=== PATIENT | male | born 1985 | race Caucasian/White ===

== ENCOUNTER 2018-11-19 23:09 | Emergency (ER) | payer MEDICAID ==
[2018-11-20] MEDS: LIDOCAINE 1% (MDV) 20 ML INJ SC (00:19)
== END 2018-11-20 01:42 | disposition home or self-care (01) ==
LOC: E/R 23:09 → FTE 11-20 01:42
DX: L72.3 Sebaceous cyst (principal); R40.2412 Glasgow coma scale score 13-15, at arrival to emergency department
CPT/HCPCS: 69000; 99282-25

== ENCOUNTER 2019-03-04 22:37 | Observation (INO) | payer SELFPAY, MEDICAID ==
[2019-03-04] MEDS: SOD CHLORIDE 0.9% 1,000 ML IV (23:37)
[2019-03-04 23:43] LABS: ADD MAN DIFF? NO
[2019-03-04 23:46] LABS: WHITE BLOOD COUNT 10.7 10^3/ul (4.8-10.8)
[2019-03-04 23:46] LABS: BASOPHIL # 0.1 10^3/ul (0.0-0.1); BASOPHILS % 0.7 % (0.0-2.0); EOSINOPHILS # 0.1 10^3/ul (0.0-0.5); HEMATOCRIT 47.8 % (42.0-52.0); HEMOGLOBIN 16.1 g/dl (14.0-18.0); MEAN CORPUSCULAR HEMOGLOBIN 27.1 pg (29.0-33.0); MEAN CORPUSCULAR HGB CONC 33.7 g/dl (32.0-37.0); MEAN CORPUSCULAR VOLUME 80.5 fl (82.0-101.0); MEAN PLATELET VOLUME 9.6 fl (7.4-10.4); MONOCYTE # 0.7 10^3/ul (0.3-0.9); MONOCYTES % 6.9 % (0.0-11.0); NEUTROPHIL # 6.8 10^3/ul (1.6-7.5); NEUTROPHILS % 62.9 % (39.0-77.0); PLATELET COUNT 320 10^3/UL (140-415); RED BLOOD COUNT 5.94 10^6/ul (4.70-6.10); RED CELL DISTRIBUTION WIDTH 11.9 % (11.5-14.5)
[2019-03-05 00:02] LABS: ALANINE AMINOTRANSFERASE 52 IU/L (13-69); ALBUMIN 5.1 g/dl (3.3-4.9); ALBUMIN/GLOBULIN RATIO 1.45; ALKALINE PHOSPHATASE 104 IU/L (42-121); ANION GAP 12 (5-13); ASPARTATE AMINO TRANSFERASE 32 IU/L (15-46); BLOOD UREA NITROGEN 17 mg/dl (7-20); CALCIUM 9.9 mg/dl (8.4-10.2); CARBON DIOXIDE 30 mmol/L (21-31); CHLORIDE 102 mmol/L (97-110); CREATININE 0.88 mg/dl (0.61-1.24); Estimated GFR > 60 mL/min (>60); GLUCOSE 84 mg/dl (70-220); POTASSIUM 4.2 mmol/L (3.5-5.1); SODIUM 144 mmol/L (135-144); TOTAL PROTEIN 8.6 g/dl (6.1-8.1)
[2019-03-05 00:14] LABS: TROPONIN-I < 0.012 ng/ml (0.000-0.120)
[2019-03-05 00:20] LABS: FREE THYROXINE INDEX (Calc) 3.14 ug/ml (0.65-3.89); T3 UPTAKE 32.7 % (23.5-40.5); T4 (THYROXINE) 9.6 ug/dl (5.5-11.0)
[2019-03-05 01:22] LABS: BILIRUBIN,INDIRECT 0.7 mg/dl (0-1.1); BILIRUBIN,TOTAL 0.7 mg/dl (0.2-1.3)
[2019-03-05 01:32] LABS: B-TYPE NATRIURETIC PEPTIDE 20 PG/ML (0-125)
[2019-03-05] MEDS: ACETAMINOPHEN 325 MG TAB PO ×2 (03:19→21:06)
[2019-03-05] MEDS ORDERED: NACL 0.9% 3 ML SYG IV (05:30)
[2019-03-05] MEDS ORDERED: ONDANSETRON 4 MG INJ IV (05:30)
[2019-03-05] MEDS ORDERED: NITROGLYCERIN (SL) 0.4 MG TAB SL (05:30)
[2019-03-05 05:44] LABS: ADD MAN DIFF? NO
[2019-03-05 05:47] LABS: BASOPHIL # 0.1 10^3/ul (0.0-0.1); EOSINOPHILS # 0.2 10^3/ul (0.0-0.5); HEMOGLOBIN 14.4 g/dl (14.0-18.0); LYMPHOCYTES % 36.9 % (15.0-51.0); MEAN CORPUSCULAR HGB CONC 33.5 g/dl (32.0-37.0); MEAN CORPUSCULAR VOLUME 80.7 fl (82.0-101.0); MEAN PLATELET VOLUME 9.5 fl (7.4-10.4); MONOCYTE # 0.9 10^3/ul (0.3-0.9); MONOCYTES % 10.4 % (0.0-11.0); NEUTROPHIL # 4.1 10^3/ul (1.6-7.5); NEUTROPHILS % 49.5 % (39.0-77.0); PLATELET COUNT 273 10^3/UL (140-415); RED BLOOD COUNT 5.33 10^6/ul (4.70-6.10); RED CELL DISTRIBUTION WIDTH 12.3 % (11.5-14.5)
[2019-03-05 05:47] LABS: WHITE BLOOD COUNT 8.2 10^3/ul (4.8-10.8)
[2019-03-05 06:11] LABS: ALANINE AMINOTRANSFERASE 40 IU/L (13-69); ALBUMIN 4.1 g/dl (3.3-4.9); ALBUMIN/GLOBULIN RATIO 1.57; ALKALINE PHOSPHATASE 74 IU/L (42-121); ANION GAP 7 (5-13); ASPARTATE AMINO TRANSFERASE 21 IU/L (15-46); BILIRUBIN,INDIRECT 0.9 mg/dl (0-1.1); BILIRUBIN,TOTAL 0.9 mg/dl (0.2-1.3); BLOOD UREA NITROGEN 13 mg/dl (7-20); CALCIUM 9.2 mg/dl (8.4-10.2); CARBON DIOXIDE 33 mmol/L (21-31); CHLORIDE 104 mmol/L (97-110); CHOL/HDL RATIO 4.1 RATIO; CHOLESTEROL 165 mg/dl (100-200); CREATININE 0.82 mg/dl (0.61-1.24); Estimated GFR > 60 mL/min (>60); GLUCOSE 81 mg/dl (70-220); HDL CHOLESTEROL 40 mg/dl (28-63); LDL CHOLESTEROL,CALCULATED 96 mg/dl; MAGNESIUM 2.2 mg/dl (1.7-2.5); POTASSIUM 3.9 mmol/L (3.5-5.1); SODIUM 144 mmol/L (135-144); TOTAL PROTEIN 6.7 g/dl (6.1-8.1); TRIGLYCERIDES 146 mg/dl (0-149)
[2019-03-05 06:14] LABS: CREATINE KINASE 63 IU/L (23-200)
[2019-03-05 06:23] LABS: CK INDEX 0.5; CK-MB 0.32 ng/ml (0.0-2.4); TROPONIN-I < 0.012 ng/ml (0.000-0.120)
[2019-03-05 07:17] LABS: FOLATE 6.2 ng/ml (2.8-20.0)
[2019-03-05] MEDS: ENOXAPARIN 40 MG/0.4 ML SYG SC ×2 (09:00→10:06)
[2019-03-05] MEDS: ASPIRIN 81 MG TAB PO (10:06)
[2019-03-05 11:33] LABS: CREATINE KINASE 68 IU/L (23-200)
[2019-03-05 11:44] LABS: CK INDEX 0.3; CK-MB 0.23 ng/ml (0.0-2.4); TROPONIN-I < 0.012 ng/ml (0.000-0.120)
[2019-03-05] MEDS: SUMATRIPTAN 6 MG/0.5 ML INJ SC (16:03)
[2019-03-05] MEDS: ATORVASTATIN 20 MG TAB PO (21:06)
[2019-03-05] MEDS: LORAZEPAM 1 MG TAB PO (22:51)
[2019-03-05] MEDS: KETOROLAC 30 MG INJ IV (23:40)
[2019-03-06] MEDS ORDERED: KETOROLAC 30 MG INJ IV (06:00)
[2019-03-06 06:41] LABS: ADD MAN DIFF? NO
[2019-03-06 06:49] LABS: WHITE BLOOD COUNT 7.8 10^3/ul (4.8-10.8)
[2019-03-06 06:49] LABS: BASOPHIL # 0.1 10^3/ul (0.0-0.1); BASOPHILS % 0.9 % (0.0-2.0); EOSINOPHILS # 0.2 10^3/ul (0.0-0.5); EOSINOPHILS % 2.7 % (0.0-7.0); HEMATOCRIT 45.7 % (42.0-52.0); HEMOGLOBIN 15.2 g/dl (14.0-18.0); LYMPHOCYTES # 2.6 10^3/ul (0.8-2.9); LYMPHOCYTES % 32.9 % (15.0-51.0); MEAN CORPUSCULAR HEMOGLOBIN 27.1 pg (29.0-33.0); MEAN CORPUSCULAR HGB CONC 33.3 g/dl (32.0-37.0); MEAN CORPUSCULAR VOLUME 81.5 fl (82.0-101.0); MEAN PLATELET VOLUME 9.8 fl (7.4-10.4); MONOCYTE # 0.7 10^3/ul (0.3-0.9); MONOCYTES % 8.6 % (0.0-11.0); NEUTROPHIL # 4.2 10^3/ul (1.6-7.5); NEUTROPHILS % 54.5 % (39.0-77.0); PLATELET COUNT 291 10^3/UL (140-415); RED BLOOD COUNT 5.61 10^6/ul (4.70-6.10); RED CELL DISTRIBUTION WIDTH 12.1 % (11.5-14.5)
[2019-03-06 07:17] LABS: ANION GAP 11 (5-13); BLOOD UREA NITROGEN 17 mg/dl (7-20); CALCIUM 9.8 mg/dl (8.4-10.2); CARBON DIOXIDE 25 mmol/L (21-31); CHLORIDE 106 mmol/L (97-110); CREATININE 0.81 mg/dl (0.61-1.24); Estimated GFR > 60 mL/min (>60); GLUCOSE 90 mg/dl (70-220); PHOSPHORUS 5.7 mg/dl (2.5-4.9); POTASSIUM 4.3 mmol/L (3.5-5.1); SODIUM 142 mmol/L (135-144)
[2019-03-06] MEDS: ASPIRIN 81 MG TAB PO (08:20)
[2019-03-06] MEDS: ENOXAPARIN 40 MG/0.4 ML SYG SC (08:33)
== END 2019-03-06 14:10 | disposition home or self-care (01) ==
LOC: E/R 22:37 → 6WM 03-05 02:27
DX: R20.0 Anesthesia of skin (principal)
CPT/HCPCS: 36415; 70450; 70551; 71045; 80048; 80053; 80061; 82550; 82553; 82607; 82652; 82746; 83036; 83735; 83880; 84100; 84436; 84443; 84479; 84484; 85025; 93005; 93306; 93880; 97161; 99285-25; G0378